=== PATIENT | male | born 2000 | race Two or more races ===

== ENCOUNTER 2025-03-27 05:10 | Emergency (ER) | payer MEDICAID, OTHER ==
[~2025-03-27] VITALS: Ht 177.8 cm; Wt 63.0 kg
[2025-03-27 05:10] VITALS: BP 118/80; RESP 18; TEMP 97.9; O2SAT 95
[2025-03-27 05:19] VITALS: PULSE 66
--- NOTE | 2025-03-27 05:25 | ED.PDOC ---
HPI Comments 24 year old male presents to the ED with a chief compliant of palpitations onset 5 days. Patient states he has been experiencing palpitations for the past 5 days, has not been able to sleep is also experiencing generalized weakness, intermittent, sharp chest pain. Patient noticed symptoms worsen this morning, came to ED. Denies any PMHx as well as nausea, vomiting, shortness of breath, abdominal pain, numbness/tingling, dizziness, changes in vision, fevers, chills, cough, congestion. No other symptoms or modifying factors present at this time. Time Seen by MD: 05:20 Reviewed Notes: Medications, Allergies Allergies: Coded Allergies: NO KNOWN ALLERGIES (Unverified , 03/27/25) Information Source: Patient Mode of Arrival: Ambulatory Severity: Moderate Timing: Days Duration: Since onset Prehospital treatment: None Location: Chest (L) Radiation: No Radiation Quality: Sharp Onset: At Rest Cardiac Risk Factors: None PE Risk Factors: None History of: None Associated Signs and Symptoms: Palpitations Past Medical History PAST MEDICAL HISTORY: Denies Surgical History: Denies all surgeries Family History Family History: Reviewed,noncontributory to illness, No family hx of Cancer, No family hx of DM, No family hx of Heart lee ann, No family hx of HTN, No family hx ofKidney lee ann, No family hx of Liver lee ann, No family hx of Lung lee ann, No family hx of Stroke Social History Smoker: Non-Smoker Alcohol: Denies ETOH Use Drugs: Denies Drug Use Lives In: Home Constitutional: reports: weakness; denies: chills, diaphoresis, fatigue, fever, malaise, sweats, others EENTM: denies: blurred vision, double vision, ear bleeding, ear discharge, ear drainage, ear pain, ear ringing, eye pain, eye redness, hearing loss, mouth pain, mouth swelling, nasal discharge, nose bleeding, nose congestion, nose pain, photophobia, tearing, throat pain, throat swelling, voice changes, others Respiratory: denies: cough, hemoptysis, orthopnea, SOB at rest, shortness of breath, SOB with excertion, stridor, wheezing, others Cardiovascular: reports: chest pain, palpitations; denies: dizzy spells, diaphoresis, Dyspnea on exertion, edema, irregular heart beat, left arm pain, lightheadedness, PND, syncope, others Gastrointestinal: denies: abdomen distended, abdominal pain, blood streaked bowels, constipated, diarrhea, dysphagia, difficulty swallowing, hematemesis, melena, nausea, poor appetite, poor fluid intake, rectal bleeding, rectal pain, vomiting, others Genitourinary: denies: burning, dysuria, flank pain, frequency, hematuria, incontinence, penile discharge, penile sore, pain, testicle pain, testicle swelling, urgency, others Neurological: denies: dizziness, fainting, headache, left sided numbness, left sided weakness, numbness, paresthesia, pre-existing deficit, right sided numbness, right sided weakness, seizure, speech problems, tingling, tremors, weakness, others Musculoskeletal: denies: back pain, gout, joint pain, joint swelling, muscle pain, muscle stiffness, neck pain, others Integumetry: denies: bruises, change in color, change in hair/nails, dryness, laceration, lesions, lumps, rash, wounds, others Allergic/Immunocompromised: denies: Difficulty Healing, Frequent Infections, Hives, Itching, others Hematologic/Lymphatic: denies: anemia, blood clots, easy bleeding, easy bruising, swollen glands, others Endocrine: denies: excessive hunger, excessive sweating, excessive thirst, excessive urination, flushing, intolerance to cold, intolerance to heat, unexplained weight gain, unexplained weight loss, others Psychiatric: reports: sleepless; denies: anxiety, bipolar disorder, depression, hopeless, panic disorder, schizophrenia, suicidal, others All Other Systems: Reviewed and Negative Physical Exam General Appearance: Normal HEENT: Normal ENT Inspection, Pharynx Normal, TMs Normal Neck: Full Range of Motion, Non-Tender, Normal, Normal Inspection Respiratory: Chest Non-Tender, Lungs Clear, No Accessory Muscle Use, No Respiratory Distress, Normal Breath Sounds Cardiovascular: No Edema, No JVD, No Murmur, No Gallop, Normal Peripheral Pulses, Regular Rate/Rhythm Breast Exam: Deferred Gastrointestinal: No Organomegaly, Non Tender, No Pulsatile Mass, Normal Bowel Sounds, Soft Genitalia: Deferred Pelvic: Deferred Rectal: Deferred Extremities: No calf tenderness, Normal capillary refill, Normal inspection, Normal range of motion, Non-tender, No pedal edema Musculoskeletal : Apperance: Normal Neurologic: Alert, edge banding machine offbearer II-XII nml as Tested, No Motor Deficits, Normal Affect, Normal Mood, No Sensory Deficits Cerebellar Function: Normal Reflexes: Normal Skin: Dry, Normal Color, Warm Lymphatic: No Adenopathy Was a procedure done? Was a procedure done?: No CP Differential Dx Differential Diagnosis: A-fib, A-Flutter, Angina, MD, PAC's, PVC's, V-Fib, V- Tach, WPW, Other X-Ray, Labs, Meds, VS Vital Signs Date Time Temp Pulse Resp B/P (MAP) Pulse Ox O2 Delivery O2 Flow Rate FiO2 03/27/25 05:19 66 03/27/25 05:10 97.9 70 18 118/80 95 97.9 Time of 1ST Reevaluation: 05:50 Reevaluation 1ST: Unchanged Patient Education/Counseling: Diagnosis, Treatment, Prognosis Family Education/Counseling: No Family Present Additional Information The following tests were ordered, and results were reviewed by me: EKG, TROP - x3, CBC, BMP, XY CHEST I reviewed and agreed with the following test results read by other providers: XY CHEST I discussed treatment and results with medical personnel and: patient Comprehensive systems review obtained and negative except for what is stated in the HPI. SEPSIS Sepsis Screen Physician Orders Electrocardigram (03/27/25 05:15) Mounter Hand (03/27/25 ) Vital Signs Date Time Temp Pulse Resp B/P (MAP) Pulse Ox O2 Delivery O2 Flow Rate FiO2 03/27/25 05:19 66 03/27/25 05:10 97.9 70 18 118/80 95 97.9 Departure 1 Departure Time of Disposition: 06:30 Impression: Primary Impression: Palpitations Disposition: 01 HOME / SELF CARE / HOMELESS Condition: Stable Discharged With: Self Critical Care Note Critical Care Time?: No Stability Stability form required: No Heart Score Heart Score: Heart Score Response (Comments) Value History Slightly Suspicious 0 EKG Normal 0 Age <45 0 Risk Factors No known risk factors 0 Troponin Normal limit 0 Total 0 I personally scribed for CRYSTAL MCCABE MD ([email or web address]) on 03/27/25 at 05:25. Areli ctronically submitted by Tia Ahn ([email or web address]). I personally scribed for CRYSTAL MCCABE MD ([email or web address]) on 03/27/25 at 05:26. Electronically submitted by Tia Ahn ([email or web address]). CRYSTAL MCCABE MD Mar 27, 2025 05:25
--- NOTE | 2025-03-27 05:43 | ECG ---
[facility] Test Date: 2025-03-27 Test Time: 05:19:29 Pat Name: DANIEL GRIJALVA Department: [facility] ED Patient ID: [id number] Room: Gender: M Roll Form Operator: CALEB : 2000 Requested By: CRYSTAL MCCABE Order Number: [id number] Reading MD: Porter Chatman Measurements Intervals [place] Rate: 66 P: 78 CA: 124 QRS: 24 QRSD: 94 T: 67 QT: 386 QTc: 405 Interpretive Statements Sinus rhythm RSR' in V1 or V2, right VCD or RVH Electronically Signed On 03-27-2025 17:54:58 PDT by Porter Chatman Please click the below link to view image of tracing.
== END 2025-03-27 05:49 | disposition home or self-care (01) ==
LOC: ER 05:10
DX: R00.2 Palpitations (principal); Z79.899 Other long term (current) drug therapy
CPT/HCPCS: 93005